=== PATIENT | male | born 1960 | race American Indian/Alaskan Native ===

== ENCOUNTER 2022-07-20 16:48 | Inpatient (IN) | payer OTHER ==
--- NOTE | 2022-07-20 17:02 | Emergency Department Report ---
ED Neuro Deficit HPI - General Stated Complaint: CODE STROKE Time Seen by Provider: 07/20/22 16:53 Source: patient Mode of arrival: Ambulatory Limitations: No Limitations - History of Present Illness Initial Comments: 62-year-old male presented to [facility] with [place] at approximately 3:27 PM via private vehicle and was noted to be lethargic called her altered and unable to ambulate. At time of evaluation patient was confused about his location, unable to provide the year, or recognize he was at a health facility. Patient's blood glucose was initially 421. Patient presents here with EMS with continued confusion and disorientation. He states the year is 2020. He is frustrated that people keep asking him the same questions. Code stroke initiated for stat CT scan to rule out hemorrhagic CVA with stat consultation with neurologist requested Medical record from [facility] reviewed. Past medical history includes Atrial fibrillation, CHF, end-stage renal disease on dialysis, history of COVID-19, hypertension, pancreatitis, sleep apnea, vitamin D deficiency, opiate therapy for chronic pain, nonischemic cardiomyopathy, hyperlipidemia, type 2 diabetes History of cholecystectomy, total knee replacement, appendectomy, and bisected Yesterday patient had his annual diabetic ophthalmology exam) reported reports decreased vision in the left eye over the past 3 to 4 months) with the following diagnosis Diabetes type 2 with mild bilateral nonproliferative retinopathy Left central retinal vein occlusion with macular edema with follow-up with retina specialist next week recommended Bilateral pseudophakia Medications include but not limited to methadone, hydrocodone, Eliquis Patient has 2 to 3 days worth of medications listed as provided by [facility] Allergies noted as per [facility] paperwork - Related Data Allergies/Adverse Reactions: Allergies Allergy/AdvReac Type Severity Reaction Status Date / Time NSAIDS (Non-Steroidal Allergy Unknown Verified 07/20/22 17:24 Anti-Inflamma Penicillins Allergy Unknown Verified 07/20/22 17:24 ED Review of Systems ROS: Stated complaint: CODE STROKE Other details as noted in HPI ED Past Medical Hx - Past Medical History Hx Hypertension: Yes Hx Congestive Heart Failure: Yes Hx Diabetes: Yes Hx Renal Disease: Yes Additional medical history: Central retinal vein occlusion, diabetic retinopathy,Atrial fibrillation, CHF, end-stage renal disease on dialysis, history of COVID-19, hypertension, pancreatitis, sleep apnea, vitamin D def iciency, opiate therapy for chronic pain, nonischemic cardiomyopathy, hyperlipidemia - Surgical History Hx Cholecystectomy: Yes Hx Appendectomy: Yes ED Neuro Physical Exam - General Suspected Stroke: Yes - NIHSS Assessment Interval: Baseline 1a. Level of Consciousness: alert/keenly responsive 1b. LOC Questions: answers 1 question correctly 1c. LOC Commands: performs tasks correctly 2. Best Gaze: normal 3. Visual: complete hemianopia (blurred vision left eye) 4. Facial Palsy: normal symmetrical movement 5b. Motor Arm Right: some gravity effort 5a. Motor Arm Left: some gravity effort 6a. Motor Leg Left: some gravity effort 6b. Motor Leg Right: some gravity effort 7. Limb Ataxia: present 1 limb (left arm) 8. Sensory: normal 9. Best Language: no aphasia 10. Dysarthria: normal 11. Extinction/Inattention: no abnormality Total Score: 12 Stroke Severity: Moderate Stroke - Other Other exam information: General: No acute distress Head: Atraumatic Eyes: normal appearance ENT: Moist mucous membranes Neck: Normal appearance, no midline tenderness Chest: Clear to auscultation bilaterally CV: Regular rate and rhythm Abdomen: Soft, normal bowel sounds, nontender, nondistended, no rebound or guarding Back: Normal inspection Extremity: Normal inspection, full range of motion Neuro: Alert and oriented to self only. NIH stroke scale attempted multiple times with inconsistent results due to lack of patient cooperation Psych: Appropriate behavior Skin: No rash ED Course Vital Signs 07/20/22 07/20/22 07/20/22 17:20 17:30 17:46 Temperature Pulse Rate 79 84 Respiratory 15 23 20 Rate Blood Pressure 153/70 153/70 Blood Pressure [Right] O2 Sat by Pulse 97 98 94 Oximetry 07/20/22 07/20/22 07/20/22 18:00 18:14 18:16 Temperature 98.0 F Pulse Rate 78 82 75 Respiratory 17 16 14 Rate Blood Pressure 172/75 153/70 Blood Pressure 175/75 [Right] O2 Sat by Pulse 97 99 94 Oximetry 07/20/22 07/20/22 07/20/22 18:30 18:38 18:46 Temperature Pulse Rate 74 79 73 Respiratory 15 18 17 Rate Blood Pressure 145/45 145/45 Blood Pressure 145/45 [Right] O2 Sat by Pulse 94 100 98 Oximetry 07/20/22 07/20/22 07/20/22 19:00 19:16 19:30 Temperature Pulse Rate 70 70 71 Respiratory 17 8 L 15 Rate Blood Pressure 149/58 149/58 169/84 Blood Pressure [Right] O2 Sat by Pulse 95 96 97 Oximetry 07/20/22 07/20/22 07/20/22 19:46 20:00 20:22 Temperature Pulse Rate 73 75 66 Respiratory 10 L 17 15 Rate Blood Pressure 169/84 169/84 163/82 Blood Pressure [Right] O2 Sat by Pulse 99 98 98 Oximetry 07/20/22 07/20/22 07/20/22 20:30 20:46 20:47 Temperature 98.0 F Pulse Rate 66 Respiratory 15 19 Rate Blood Pressure 163/82 Blood Pressure [Right] O2 Sat by Pulse 95 95 Oximetry 07/20/22 22:28 Temperature 98.0 F Pulse Rate 73 Respiratory 20 Rate Blood Pressure Blood Pressure 144/88 [Right] O2 Sat by Pulse 95 Oximetry - Reevaluation(s) Reevaluation #1: 07/20/22 19:17 still awaiting lab results. I reordered the lab work noticing that the test was not reported. They were canceled. I spoke to office technology professor and requested a stat blood draw and reordered it once again - Consultations Consultation #1: 07/20/22 22:16 case d/w Jose Rachel. approves admission here - Lab Data Result diagrams: 07/20/22 17:56 07/20/22 19:00 Lab Results 07/20/22 07/20/22 07/20/22 Range/Units 17:35 17:56 17:56 WBC 5.2 (4.5-11.0) K/mm3 RBC 3.42 L (3.65-5.03) M/mm3 Hgb 10.6 L (11.8-15.2) gm/dl Hct 31.6 L (35.5-45.6) % MCV 93 (84-94) fl MCH 31 (28-32) pg MCHC 34 (32-34) % RDW 15.7 H (13.2-15.2) % Plt Count 210 (140-440) K/mm3 Lymph % (Auto) 38.4 H (13.4-35.0) % [place] % (Auto) 7.1 (0.0-7.3) % Eos % (Auto) 1.8 (0.0-4.3) % Baso % (Auto) 0.6 (0.0-1.8) % Lymph # (Auto) 2.0 (1.2-5.4) K/mm3 [place] # (Auto) 0.4 (0.0-0.8) K/mm3 Eos # (Auto) 0.1 (0.0-0.4) K/mm3 Baso # (Auto) 0.0 (0.0-0.1) K/mm3 Seg Neutrophils % 52.1 (40.0-70.0) % Seg Neutrophils # 2.7 (1.8-7.7) K/mm3 PT 14.0 (12.2-14.9) Sec. INR 0.97 (0.87-1.13) APTT 33.6 (24.2-36.6) Sec. Thrombin Time 17.1 (15.1-19.6) Sec. VBG pH (7.320-7.420) Sodium Potassium (3.6-5.0) mmol/L Chloride (98-107) mmol/L Carbon Dioxide (22-30) mmol/L Anion Gap mmol/L BUN Creatinine Estimated GFR BUN/Creatinine Ratio Glucose (75-100) mg/dL POC Glucose 310 H (70-105) mg/dL Calcium Phosphorus (2.5-4.5) mg/dL Magnesium Total Bilirubin AST ALT (7-56) units/L Alkaline Phosphatase (35-129) units/L Ammonia (25-60) umol/L Total Creatine Kinase (55-170) units/L CK-MB (CK-2) CK-MB (CK-2) Rel Index Troponin T Total Protein (6.3-8.2) g/dL Albumin (3.9-5) g/dL Albumin/Globulin Ratio % Triglycerides (2-149) mg/dL Cholesterol (50-199) mg/dL LDL Cholesterol Direct HDL Cholesterol (40-59) mg/dL Cholesterol/HDL Ratio % TSH (0.270-4.200) mlU/mL Free T4 (0.76-1.46) ng/dL Plasma/Serum Alcohol (0-0.07) % 07/20/22 07/20/22 07/20/22 Range/Units 17:56 17:56 17:56 WBC (4.5-11.0) K/mm3 RBC (3.65-5.03) M/mm3 Hgb (11.8-15.2) gm/dl Hct (35.5-45.6) % MCV (84-94) fl MCH (28-32) pg MCHC (32-34) % RDW (13.2-15.2) % Plt Count (140-440) K/mm3 Lymph % (Auto) (13.4-35.0) % [place] % (Auto) (0.0-7.3) % Eos % (Auto) (0.0-4.3) % Baso % (Auto) (0.0-1.8) % Lymph # (Auto) (1.2-5.4) K/mm3 [place] # (Auto) (0.0-0.8) K/mm3 Eos # (Auto) (0.0-0.4) K/mm3 Baso # (Auto) (0.0-0.1) K/mm3 Seg Neutrophils % (40.0-70.0) % Seg Neutrophils # (1.8-7.7) K/mm3 PT (12.2-14.9) Sec. INR (0.87-1.13) APTT (24.2-36.6) Sec. Thrombin Time (15.1-19.6) Sec. VBG pH (7.320-7.420) Sodium TNR Potassium 3.9 (3.6-5.0) mmol/L Chloride 94.1 L (98-107) mmol/L Carbon Dioxide 28 (22-30) mmol/L Anion Gap 18 mmol/L BUN TNR Creatinine TNR Estimated GFR TNR BUN/Creatinine Ratio TNR Glucose 303 H (75-100) mg/dL POC Glucose (70-105) mg/dL Calcium TNR Phosphorus 2.50 (2.5-4.5) mg/dL Magnesium TNR Total Bilirubin TNR AST TNR ALT 13 (7-56) units/L Alkaline Phosphatase 112 (35-129) units/L Ammonia 27.0 (25-60) umol/L Total Creatine Kinase 144 (55-170) units/L CK-MB (CK-2) TNR CK-MB (CK-2) Rel Index TNR Troponin T TNR Total Protein 7.4 (6.3-8.2) g/dL Albumin 4.1 (3.9-5) g/dL Albumin/Globulin Ratio 1.2 % Triglycerides (2-149) mg/dL Cholesterol (50-199) mg/dL LDL Cholesterol Direct HDL Cholesterol (40-59) mg/dL Cholesterol/HDL Ratio % TSH 2.250 (0.270-4.200) mlU/mL Free T4 0.96 (0.76-1.46) ng/dL Plasma/Serum Alcohol (0-0.07) % 07/20/22 07/20/22 07/20/22 Range/Units 17:56 17:56 19:00 WBC (4.5-11.0) K/mm3 RBC (3.65-5.03) M/mm3 Hgb (11.8-15.2) gm/dl Hct (35.5-45.6) % MCV (84-94) fl MCH (28-32) pg MCHC (32-34) % RDW (13.2-15.2) % Plt Count (140-440) K/mm3 Lymph % (Auto) (13.4-35.0) % [place] % (Auto) (0.0-7.3) % Eos % (Auto) (0.0-4.3) % Baso % (Auto) (0.0-1.8) % Lymph # (Auto) (1.2-5.4) K/mm3 [place] # (Auto) (0.0-0.8) K/mm3 Eos # (Auto) (0.0-0.4) K/mm3 Baso # (Auto) (0.0-0.1) K/mm3 Seg Neutrophils % (40.0-70.0) % Seg Neutrophils # (1.8-7.7) K/mm3 PT (12.2-14.9) Sec. INR (0.87-1.13) APTT (24.2-36.6) Sec. Thrombin Time (15.1-19.6) Sec. VBG pH 7.605 H* (7.320-7.420) Sodium 136 L Potassium 4.0 (3.6-5.0) mmol/L Chloride 93.7 L (98-107) mmol/L Carbon Dioxide 28 (22-30) mmol/L Anion Gap 18 mmol/L BUN 28 H Creatinine 5.3 H Estimated GFR 11 BUN/Creatinine Ratio 5 Glucose 247 H (75-100) mg/dL POC Glucose (70-105) mg/dL Calcium 8.7 Phosphorus 3.30 D (2.5-4.5) mg/dL Magnesium 2.20 Total Bilirubin 0.20 AST 8 ALT 9 (7-56) units/L Alkaline Phosphatase 115 (35-129) units/L Ammonia (25-60) umol/L Total Creatine Kinase 146 (55-170) units/L CK-MB (CK-2) 2.2 CK-MB (CK-2) Rel Index 1.5 Troponin T 0.123 H* Total Protein 7.2 (6.3-8.2) g/dL Albumin 4.0 (3.9-5) g/dL Albumin/Globulin Ratio 1.3 % Triglycerides 882 H (2-149) mg/dL Cholesterol 194 (50-199) mg/dL LDL Cholesterol Direct TNR HDL Cholesterol 36 L (40-59) mg/dL Cholesterol/HDL Ratio 5.38 % TSH (0.270-4.200) mlU/mL Free T4 (0.76-1.46) ng/dL Plasma/Serum Alcohol < 0.01 (0-0.07) % - EKG Data -: EKG Interpreted by Me (Left bundle branch block) EKG shows normal: sinus rhythm, ST-T waves (No STEMI) Rate: normal When compared to previous EKG there are: previous EKG unavailable - Radiology Data Radiology results: report reviewed (CT head, CT angiogram head and neck reviewed as well as chest) - Medical Decision Making 62-year-old male presents to the hospital with confusion starting after dialys is. Exact time of onset unclear. Neurologic exam is inconsistent and unclear for focal neurologic deficit. Neurology consult appreciated. No signs of large vessel occlusion or acute noncontrast head CT findings. No significant findings identified on labs to review because of acute encephalopathy. Initial hyperglycemia is improving without intervention without signs of DKA. Patient also has a normal ammonia and thyroid studies. Patient takes significant narcotics including methadone and hydrocodone for pain. Patient is also chronically on Eliquis. Case discussed with [facility] physician who provided permission to admit here. Case discussed with hospitalist Dr. Hester/hospitalist for admission - Thrombolytic Inclusion/Exclusion Thrombolytic Exclusion Criteria: Onset of Symptoms Unknown Thrombolytic Contraindications: Patient on Anticoagulants Critical Care Time: Yes Critical care time in (mins) excluding proc time.: 35 Critical care attestation.: If time is entered above; I have spent that time in minutes in the direct care of this critically ill patient, excluding procedure time. Critical Care Time: 35 minutes of critical care time excluding procedures were used in the care of the patient. I came immediately to the bedside upon patient's arrival. I obtained history from EMS at the bedside. I discussed treatment plan with the nursing team members. I reviewed electronic record Patient required multiple interventions and reassessments. Spoke with hospitalist and consultants for collaborative care ED Disposition Clinical Impression: Altered mental status, ESRD (end stage renal disease) on dialysis, Chronic pain, Chronic narcotic dependence Disposition: ADMITTED INPATIENT Is pt being admited?: Yes Condition: Stable Time of Disposition: 23:21 (DR mcmahon)
--- NOTE | 2022-07-20 17:30 | Cat Scan Report ---
CT head/brain wo con INDICATION / CLINICAL INFORMATION: 62 years Male; Stroke symptoms. TECHNIQUE: Routine CT head without contrast. All CT scans at this location are performed using CT dos e reduction for ALARA by means of automated exposure control. COMPARISON: None. FINDINGS: BRAIN / INTRACRANIAL CONTENTS: There is extensive cerebral white matter disease most consistent with microvascular angiopathy. 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 Is mild cerebral atrophy. The ventricular system is correspondingly appropriate in size and configuration. There is no clear CT porfirio dence of acute intracranial hemorrhage or significant mass effect. Correlation be needed regarding co ncern for underlying acute ischemia given the extent of the above findings. ORBITS: No significant abnormality of visualized orbits. SINUSES / MASTOIDS: No significant abnormality in the visualized paranasal sinuses or mastoid air maxwell ls. CRANIOCERVICAL JUNCTION: No significant abnormality. ADDITIONAL FINDINGS: None. IMPRESSION: 1. There is extensive microvascular angiopathy as detailed above without clear CT evidence of acute i ntracranial hemorrhage. Signer Name: Rusty Adhikari MD Signed: 07/20/2022 5:25 PM Workstation Name: [email or web address]
--- NOTE | 2022-07-20 17:35 | Emergency Department Report ---
Blank Doc - Documentation Documentation: [facility] Consult Note # Demographics Consult Type: Acute Stroke Level 1 (0-4.5 hrs) Patient Location: Emergency Room First Name: Binu Last Name: Chris Date of : 1960 Age: 62 Gender: Male Facility: [facility] Time of Initial Page (Eastern Time): 07/20/2022, 16:55 Time of Return Call (Eastern Time): 07/20/2022, 16:55 # HPI History: 62 year old male with hx of DM, diabetic retinopathy, ESRD on dialysis who presents with AMS after completing dialysis to an outside [place] clinic. Unclear time of onset of the symptoms. Blood glucose is 421. Patient on eliquis on review of med list. Patient unable to provide much history and states he doesnt know why he is in the hospital. # Scores Level of Consciousness 1a: [0] = Alert; keenly responsive LOC Questions 1b: [0] = Answers both questions correctly LOC Commands 1c: [0] = Performs both tasks correctly Best Gaze 2: [0] = Normal Visual 3: [0] = No visual loss Facial Palsy 4: [0] = Normal symmetrical movements Motor Arm Left 5a: [0] = No drift Motor Leg Left 6a: [0] = No drift Motor Leg Right 6b: [0] = No drift Limb Ataxia 7: [0] = Absent Sensory 8: [0] = Normal Best Language 9: [0] = No aphasia Dysarthria 10: [0] = Normal Extinction and Inattention 11: [0] = No abnormality NIHSS Total: 0 # Exam Mental Status: awake oriented to place, not cooperative with exam, states his head hurts and wants to be left alone Language: no dysarthria unable to assess for aphasia Motor: no obvious drift in arms, would not move his legs for me, states he can move them but doesnt want to right now # PMH-FH-SH Past Medical History: Diabetes hypertension ESRD on dialysis Social History: non-smoker non-drinker no drugs lives with family # Data Head CT: no bleed per radiologist read # Assessment Impression: Likely acute metabolic /toxic encephalopathy., work up as per ED. Less likely to be stroke. No focal findings noted on exam though patient not cooperative. Not tpa candidate # Plan Thrombolytic/Intervention: NOT IV Thrombolysis or IA Intervention candidate Thrombolytic Exclusion: > 4.5 hours non-disabling deficit, unclear timeline, on eliquis Intraarterial Exclusion: cta pending Blood Pressure Management: IV fluid bolus Target Blood Pressure: SBP < 160 SBP > 110 DBP < 105 Labs: CBC comprehensive metabolic panel hemoglobin A1c lipid panel troponin TSH ua Imaging: (urgency: STAT): CT Head without contrast CT Angiogram Head and CT Angiogram Neck Imaging: (urgency: routine): MRI Brain without contrast Diagnostic Test: echo with bubble study Medication: continue home meds Other: If patient has any neurological deterioration please call me back immediately telemetry monitoring would not pursue stroke work-up if MRI is negative I have discussed my recommendations with the referring provider # Demographics First Name: Binu Last Name: Chris Facility: [facility]
[2022-07-20 18:07] LABS: Basophils % (Auto) 0.6 % (0.0-1.8); Eosinophils # (Auto) 0.1 K/mm3 (0.0-0.4); Eosinophils % (Auto) 1.8 % (0.0-4.3); Hematocrit 31.6 % (35.5-45.6); Hemoglobin 10.6 gm/dl (11.8-15.2); Lymphocytes % (Auto) 38.4 % (13.4-35.0); Mean Corpuscular HGB Conc 34 % (32-34); Mean Corpuscular Volume 93 fl (84-94); Monocytes # (Auto) 0.4 K/mm3 (0.0-0.8); Monocytes % (Auto) 7.1 % (0.0-7.3); Platelet Count 210 K/mm3 (140-440); Red Blood Count 3.42 M/mm3 (3.65-5.03); Red Cell Distribution Width 15.7 % (13.2-15.2)
--- NOTE | 2022-07-20 18:16 | XRay Report ---
CHEST 1 VIEW 07/20/2022 5:03 PM INDICATION / CLINICAL INFORMATION: altered mental status. COMPARISON: None. FINDINGS: SUPPORT DEVICES: None. HEART / MEDIASTINUM: Normal. LUNGS / PLEURA: There are low lung volumes with presumed atelectatic changes in the bases. No pleural effusion. No pneumothorax. ADDITIONAL FINDINGS: No significant additional findings. IMPRESSION: 1. No acute findings. Signer Name: Jh Miramontes MD Signed: 07/20/2022 6:12 PM Workstation Name: [email or web address]
[2022-07-20 18:19] LABS: INR 0.97 (0.87-1.13)
[2022-07-20 18:20] LABS: Partial Thromboplastin Time 33.6 Sec. (24.2-36.6); Thrombin Time 17.1 Sec. (15.1-19.6)
[2022-07-20 18:23] LABS: Alanine Aminotransferase 13 units/L (7-56); Albumin 4.1 g/dL (3.9-5)
[2022-07-20 18:34] LABS: Free T4 (Free Thyroxine) 0.96 ng/dL (0.76-1.46)
[2022-07-20 18:52] LABS: BUN/Creatinine Ratio TNR; Blood Urea Nitrogen TNR mg/dL (9-20)
[2022-07-20 18:53] LABS: Calcium TNR mg/dL (8.4-10.2); Creatine Kinase MB TNR ng/mL (0.0-4.0); Hemolysis Index TNR
[2022-07-20] MEDS ORDERED: HYDROmorphone 0.5 MG/0.5 ML INJ IV ONE (19:20)
[2022-07-20 20:05] LABS: Creatine Kinase MB 2.2 ng/mL (0.0-4.0)
[2022-07-20 20:07] LABS: Blood Urea Nitrogen 28 mg/dL (9-20); Calcium 8.7 mg/dL (8.4-10.2); Hemolysis Index 29
[2022-07-20 20:21] LABS: BUN/Creatinine Ratio 5
[2022-07-20 20:40] LABS: Alanine Aminotransferase 9 units/L (7-56)
[2022-07-20 20:53] LABS: Chol/HDL Ratio 5.38 %; HDL Cholesterol 36 mg/dL (40-59); LDL Cholesterol,Direct TNR mg/dL (50-130)
--- NOTE | 2022-07-20 21:26 | Cat Scan Report ---
CT angio head, CT angio neck HISTORY: confusion, possible left side weakness COMPARISON: None. TECHNIQUE: CTA of the neck and head is performed after IV contrast. 3-D/MIP reformats were postproces sed. Percentage stenosis is determined by direct quantitative measurements of diseased internal becerril tid artery diameter compared with normal distal internal carotid artery reference segments or by crit eria similar to NASCET where applicable. All CT scans at this location are performed using CT dose re duction for ALARA by means of automated exposure control. FINDINGS: CTA NECK: Aortic arch: No significant abnormality. Cervical vertebral arteries: No occlusion or hemodynamically significant stenosis. Common Carotid arteries: No occlusion or hemodynamically significant stenosis. Internal carotid arteries: No occlusion or hemodynamically significant stenosis. CTA HEAD: Intracranial internal carotid arteries: No occlusion or significant stenosis. Anterior cerebral arteries: No occlusion or significant stenosis. Middle cerebral arteries: No occlusion or significant stenosis. Intracranial vertebral arteries: No occlusion or significant stenosis. Basilar artery: No occlusion or significant stenosis. Posterior cerebral arteries: No occlusion or significant stenosis. No aneurysm. Additional findings: None. IMPRESSION: 1. CTA NECK: No occlusion or significant stenosis of the carotid or vertebral arteries. 2. CTA HEAD: No occlusion or significant stenosis of the major intracranial vasculature. Signer Name: Jesus Salvador MD Signed: 07/20/2022 9:21 PM Workstation Name: [id number]
[2022-07-20] MEDS ORDERED: HYDROmorphone 0.5 MG/0.5 ML INJ ONE (22:38)
[2022-07-20] MEDS ORDERED: HYDROmorphone 1 MG/1 ML INJ IV ONE (23:01)
[2022-07-20] MEDS ORDERED: ONDANSETRON 4 MG/2 ML INJ IV PRN ×3 (23:22→23:58)
[2022-07-20] MEDS ORDERED: ACETAMINOPHEN 325 MG TAB PO PRN (23:58)
[2022-07-20] MEDS ORDERED: DEXTROSE 50% IN WATER (25GM) 50 ML SYRINGE IV PRN (23:58)
[2022-07-20] MEDS ORDERED: MAGNESIUM HYDROXIDE (MOM) ORAL LIQD UDC PO PRN ×2 (23:58)
[2022-07-20] MEDS ORDERED: PROMETHAZINE 25 MG RECT SUPP PR PRN (23:58)
[2022-07-20] MEDS ORDERED: METOCLOPRAMIDE 10 MG TAB PO PRN (23:58)
--- NOTE | 2022-07-21 00:13 | History and Physical Report ---
History of Present Illness Date of examination: 07/21/22 Date of admission: 07/21/2022 Chief complaint: Altered mental status History of present illness: 62-year-old male with multiple medical problems including CHF, end-stage renal disease on dialysis, atrial fibrillation, hypertension, opiate therapy for chronic pain and diabetes mellitus brought into the emergency room today from a [facility] care facility with complaints of changes in mental status and gen eralized lethargy. Patient is able to respond to questions appropriately but still appears confused. He states he does not know why he is in the hospital Consultation was placed to the neurologist who recommended further work-up for possible metabolic/toxic encephalopathy. Work-up in the emergency room today, labs significant for BUN of 28 and creatinine of 5.3. Troponin of 0.123. CT of the head shows extensive microvascular angiopathy. No evidence of acute intracranial hemorrhage. Chest x-ray unremarkable. CTA head and neck unremarkable. Past History Past Medical History: atrial fib, diabetes, dialysis, ESRD, hypertension, hyperlipidemia, other (Sleep apnea,H/O Pancreatitis,Vit. D deficiency,non ischemic cardiomyopathy) Past Surgical History: appendectomy, cholecystectomy, total knee replacement Social history: no significant social history Family history: no significant family history Medications and Allergies Allergies Allergy/AdvReac Type Severity Reaction Status Date / Time NSAIDS (Non-Steroidal Allergy Unknown Verified 07/20/22 17:24 Anti-Inflamma Penicillins Allergy Unknown Verified 07/20/22 17:24 Active Meds: Active Medications Acetaminophen (Acetaminophen 325 Mg Tab) 650 mg PO Q4H PRN PRN Reason: Pain MILD(1-3)/Fever >100.5/DANIELLE Morphine Sulfate (Morphine 2 Mg/1 Ml Inj) 2 mg IV Q4H PRN PRN Reason: Pain, Moderate (4-6) Ondansetron HCl (Ondansetron 4 Mg/2 Ml Inj) 4 mg IV Q8H PRN PRN Reason: Nausea And Vomiting Sodium Chloride (Sodium Chloride 0.9% 10 Ml Flush Syringe) 10 ml IV BID BILL Sodium Chloride (Sodium Chloride 0.9% 10 Ml Flush Syringe) 10 ml IV PRN PRN PRN Reason: LINE FLUSH Review of Systems Constitutional: no fever, no chills Ears, nose, mouth and throat: no nasal congestion, no sore throat Cardiovascular: no chest pain, no palpitations Respiratory: no cough, no shortness of breath Gastrointestinal: no nausea, no vomiting, no diarrhea Genitourinary Male: no dysuria, no hematuria, no flank pain Musculoskeletal: no neck pain, no low back pain Integumentary: no rash, no pruritis Neurological: confusion, no headaches Psychiatric: no anxiety, no depression Endocrine: no polyphagia, no polydipsia, no polyuria, no nocturia Exam - Constitutional Vitals: Temp Pulse Resp BP Pulse Ox 98.7 F 61 18 177/73 99 07/20/22 23:26 07/20/22 23:16 07/20/22 23:16 07/20/22 23:16 07/20/22 23:16 General appearance: Present: no acute distress, well-nourished, obese - EENT Eyes: Present: PERRL, EOM intact. Absent: scleral icterus ENT: hearing intact, clear oral mucosa, dentition normal - Neck Neck: Present: supple, normal ROM - Respiratory Respiratory effort: normal Respiratory: bilateral: CTA - Cardiovascular Rhythm: regular Heart Sounds: Present: S1 & S2. Absent: gallop, systolic murmur, diastolic murmur, rub, click - Extremities Extremities: no ischemia, pulses intact, pulses symmetrical, No edema, normal temperature, normal color, Full ROM Peripheral Pulses: within normal limits - Abdominal General gastrointestinal: Present: soft, non-tender, non-distended, normal bowel sounds. Absent: mass - Integumentary Integumentary: Present: clear, warm, dry, normal turgor. Absent: rash - Musculoskeletal Musculoskeletal: strength equal bilaterally - Psychiatric Psychiatric: appropriate mood/affect, intact judgment & insight, memory intact, cooperative - Neurologic Neurologic: CNII-XII intact, no focal deficits, moves all extremities HEART Score - HEART Score Troponin: Troponin T 0.123 ng/mL (0.00-0.029) H* 07/20/22 19:00 Results - Labs CBC & Chem 7: 07/20/22 17:56 07/20/22 19:00 Labs: Abnormal lab results 07/20/22 07/20/22 07/20/22 Range/Units 17:35 17:56 17:56 RBC 3.42 L (3.65-5.03) M/mm3 Hgb 10.6 L (11.8-15.2) gm/dl Hct 31.6 L (35.5-45.6) % RDW 15.7 H (13.2-15.2) % Lymph % (Auto) 38.4 H (13.4-35.0) % VBG pH (7.320-7.420) Sodium (137-145) mmol/L Chloride 94.1 L (98-107) mmol/L BUN (9-20) mg/dL Creatinine (0.8-1.3) mg/dL Glucose 303 H (75-100) mg/dL POC Glucose 310 H (70-105) mg/dL Troponin T (0.00-0.029) ng/mL Triglycerides (2-149) mg/dL HDL Cholesterol (40-59) mg/dL 07/20/22 07/20/22 Range/Units 17:56 19:00 RBC (3.65-5.03) M/mm3 Hgb (11.8-15.2) gm/dl Hct (35.5-45.6) % RDW (13.2-15.2) % Lymph % (Auto) (13.4-35.0) % VBG pH 7.605 H* (7.320-7.420) Sodium 136 L (137-145) mmol/L Chloride 93.7 L (98-107) mmol/L BUN 28 H (9-20) mg/dL Creatinine 5.3 H (0.8-1.3) mg/dL Glucose 247 H (75-100) mg/dL POC Glucose (70-105) mg/dL Troponin T 0.123 H* (0.00-0.029) ng/mL Triglycerides 882 H (2-149) mg/dL HDL Cholesterol 36 L (40-59) mg/dL Assessment and Plan Assessment: 1.Altered mental status 2.ESRD- on dialysis 3.Diabetes Mellitus 4. Elevated troponin-possibly secondary to end-stage renal disease Plan: 1. Patient admitted and will monitor neuro status. 2. Schedule for MRI of the brain and also cardiogram. 3. Consult placed to neurology for further evaluation and recommendations. 4. Commence patient on daily aspirin and statin. 5. We will place consult to nephrology for further evaluation and recommendations. 6. Patient placed on sliding scale insulin. We will monitor Accu-Chek. DVT Prophylaxis: SQ Heparin CODE STATUS: Full code
[2022-07-21] MEDS: MORPHINE 2 MG/1 ML INJ IV PRN ×4 (02:06→22:03)
[2022-07-21] MEDS: ACETAMINOPHEN 325 MG TAB PO PRN ×2 (02:50→10:15)
[2022-07-21] MEDS: HEPARIN 5,000 UNIT/1 ML VIAL SUB-Q SCH ×3 (05:22→22:02)
[2022-07-21] MEDS ORDERED: ASPIRIN 325 MG TAB PO SCH (10:00)
[2022-07-21] MEDS: INSULIN LISPRO 100 UNIT/ML SUB-Q SCH ×4 (10:16→22:11)
--- NOTE | 2022-07-21 12:25 | Vascular Lab Report ---
DUPLEX DOPPLER ULTRASOUND CAROTID, BILATERAL INDICATION / CLINICAL INFORMATION: stroke. COMPARISON: CTA neck 07/20/2022. FINDINGS: RIGHT CAROTID: Mild atherosclerotic plaque. - PLAQUE ESTIMATE (%): < 50% - CCA velocity: 63 cm/sec. - ICA peak systolic velocity: 102 cm/sec. - ICA/CCA PSV Ratio: Less than 2. Right Vertebral Artery: Antegrade flow. LEFT CAROTID: Mild atherosclerotic plaque. - PLAQUE ESTIMATE (%): < 50% - CCA velocity: 83 cm/sec. - ICA peak systolic velocity: 107 cm/sec. - ICA/CCA PSV Ratio: Less than 2. Left Vertebral Artery: Antegrade flow. IMPRESSION: 1. Right Internal Carotid Artery: Less than 50% diameter stenosis. 2. Left Internal Carotid Artery: Less than 50% diameter stenosis. Velocity criteria are extrapolated from diameter data as defined by the Society of Radiologists in Ul trasound Consensus Conference, Radiology 2003; 229;340-346. NO STENOSIS (NORMAL) - Plaque = none; ICA PSV < 125 cm/sec; ICA/CCA PSV Ratio < 2.0 <50% STENOSIS - Plaque < 50%; ICA PSV < 125 cm/sec; ICA/CCA PSV Ratio < 2.0 50-69% STENOSIS - Plaque > 50%; ICA PSV = 125-230 cm/sec; ICA/CCA PSV Ratio = 2.0-4.0 >70% BUT <100% STENOSIS - Plaque > 50%; ICA PSV > 230 cm/sec; ICA/CCA PSV Ratio > 4.0 NEAR OCCLUSION - Plaque = visible lumen; ICA PSV = high/low/none; ICA/CCA PSV Ratio = variable TOTAL OCCLUSION - Plaque = no lumen; ICA PSV = none; ICA/CCA PSV Ratio = N/A Scribed by: Lou Moya RDMS, RVT, RMSKS Scribed: 07/21/2022 10:55 AM I have reviewed the images, agree with this report, and edited this report as needed. Signer Name: Justin Andres MD Signed: 07/21/2022 12:21 PM Workstation Name: [id number]
[2022-07-21] MEDS ORDERED: LACTULOSE 20 GM/30 ML ORAL LIQD PO PRN (13:00)
--- NOTE | 2022-07-21 13:37 | Electrocardiograph Report ---
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
--- NOTE | 2022-07-21 13:44 | Event Note ---
Date: 07/21/22 Patient seen and examined at bedside. He appears to be alert and oriented x2. He has no recollection of the events that caused him to be hospitalized. He does have ESRD and was dialyzed yesterday. I also discussed current care plan with his Lily Perez ([phone]) over the phone. She has noticed that he has been having a decline in his memory which is worse after dialysis. She spoke with him earlier today and it is not his baseline to be confused. We will continue with current care plan. The patient is still awaiting Neurology and PT evaluation. [facility] was contacted to discuss patients hospitalization.
--- NOTE | 2022-07-21 13:56 | Consultation ---
History of Present Illness Consult date: 07/21/22 Reason for Consult: CVA History of present illness: 62-year-old male with multiple medical problems including CHF, end-stage renal disease on dialysis, atrial fibrillation, hypertension, opiate therapy for chronic pain and diabetes mellitus brought into the emergency room today from a [facility] care facility with complaints of changes in mental status and generalized lethargy. Patient is able to respond to questions appropriately but still appears confused. He states he does not know why he is in the hospital Consultation was placed to the neurologist who recommended further work-up for possible metabolic/toxic encephalopathy. History reviewed with the patient , the patient reports the pain the left arm and back pain, no tongue bite . There patient recall no history . There is a hsitory of DANIELLE . Past History Past Medical History: atrial fib, diabetes, dialysis, ESRD, hypertension, hype rlipidemia, other (Sleep apnea,H/O Pancreatitis,Vit. D deficiency,non ischemic cardiomyopathy) Past Surgical History: appendectomy, cholecystectomy, total knee replacement Social history: no significant social history Family history: no significant family history Medications and Allergies Allergies Allergy/AdvReac Type Severity Reaction Status Date / Time NSAIDS (Non-Steroidal Allergy Unknown Verified 07/20/22 17:24 Anti-Inflamma Penicillins Allergy Unknown Verified 07/20/22 17:24 Active Meds: Active Medications Acetaminophen (Acetaminophen 325 Mg Tab) 650 mg PO Q4H PRN PRN Reason: Pain MILD(1-3)/Fever >100.5/DANIELLE Last Admin: 07/21/22 10:15 Dose: 650 mg Aspirin (Aspirin 325 Mg Tab) 325 mg PO QDAY BILL Last Admin: 07/21/22 10:15 Dose: 325 mg Atorvastatin Calcium (Atorvastatin 40 Mg Tab) 40 mg PO QHS BILL Bisacodyl (Bisacodyl 10 Mg Rect Supp) 10 mg MD QDAY PRN PRN Reason: Constipation Dextrose (Dextrose 50% In Water (25gm) 50 Ml Syringe) 0 ml IV Q30MIN PRN; Protocol PRN Reason: Hypoglycemia Heparin Sodium (Porcine) (Heparin 5,000 Unit/1 Ml Vial) 5,000 unit SUB-Q Q8HR BILL Last Admin: 07/21/22 05:22 Dose: 5,000 unit Insulin Human Lispro (Insulin Lispro 100 Unit/Ml) 0 unit SUB-Q [facility]; Protocol Last Admin: 07/21/22 11:59 Dose: 1 unit Lactulose (Lactulose 20 Gm/30 Ml Oral Liqd) 20 gm PO Q6H PRN PRN Reason: Constipation Magnesium Hydroxide (Magnesium Hydroxide (Mom) Oral Liqd Udc) 30 ml PO Q4H PRN PRN Reason: Constipation Metoclopramide HCl (Metoclopramide 10 Mg Tab) 5 mg PO Q6H PRN PRN Reason: Nausea And Vomiting Morphine Sulfate (Morphine 2 Mg/1 Ml Inj) 2 mg IV Q4H PRN PRN Reason: Pain, Moderate (4-6) Last Admin: 07/21/22 12:01 Dose: 2 mg Ondansetron HCl (Ondansetron 4 Mg/2 Ml Inj) 4 mg IV Q8H PRN PRN Reason: Nausea And Vomiting Promethazine HCl (Promethazine 25 Mg Rect Supp) 25 mg MD Q6H PRN PRN Reason: Nausea And Vomiting Sodium Chloride (Sodium Chloride 0.9% 10 Ml Flush Syringe) 10 ml IV BID BILL Last Admin: 07/21/22 12:05 Dose: 10 ml Sodium Chloride (Sodium Chloride 0.9% 10 Ml Flush Syringe) 10 ml IV PRN PRN PRN Reason: LINE FLUSH Physical Examination - Vital Signs Vital Signs: Vital Signs Resp Pulse Ox 15 97 07/20/22 17:20 07/20/22 17:20 - Physical Exam Narrative exam: The patient is alert , moves all 4 extremity , there no cranial nerve abnormality noted . Results - Laboratory Findings CBC and BMP: 07/20/22 17:56 07/20/22 19:00 Abnormal Lab Findings: Abnormal Labs 07/20/22 07/20/22 07/20/22 17:35 17:56 17:56 RBC 3.42 L Hgb 10.6 L Hct 31.6 L RDW 15.7 H Lymph % (Auto) 38.4 H VBG pH Sodium Chloride 94.1 L BUN Creatinine Glucose 303 H POC Glucose 310 H Troponin T Triglycerides HDL Cholesterol 07/20/22 07/20/22 07/20/22 17:56 19:00 23:05 RBC Hgb Hct RDW Lymph % (Auto) VBG pH 7.605 H* Sodium 136 L Chloride 93.7 L BUN 28 H Creatinine 5.3 H Glucose 247 H POC Glucose Troponin T 0.123 H* 0.129 H* Triglycerides 882 H HDL Cholesterol 36 L 07/21/22 07:41 RBC Hgb Hct RDW Lymph % (Auto) VBG pH Sodium Chloride BUN Creatinine Glucose POC Glucose 214 H Troponin T Triglycerides HDL Cholesterol Assessment and Plan 1. CVA ( Hypoperfusion ? secondary to Dialysis - CTA Brain and Neck Reviewed ). 2. Recurrant Falls ( rule out Cervical Myelopathy ). MRI Brain and MRI Cervical Spine while in Hospital . PT evaluation for Fall . Out Patient Neurological Follow up for Possible NCV . No changes in Medications . Dr. Durham
[2022-07-21] MEDS ORDERED: hydrALAZINE 20 MG/1 ML INJ IV PRN (21:53)
[2022-07-21] MEDS ORDERED: METHADONE 5 MG TAB PO SCH (22:00)
[2022-07-21] MEDS ORDERED: PANTOPRAZOLE 40 MG TAB PO PRN (22:00)
[2022-07-21] MEDS: APIXABAN 5 MG TAB PO SCH (22:15)
[2022-07-21] MEDS: METHADONE 5 MG TAB PO ONE ×2 (22:16→23:07)
[2022-07-21 22:34] LABS: Hepatitis B Surface Antigen Non-Reactive (Negative); Hepatitis C Virus Antibody Non-Reactive (NonReactive)
[2022-07-21] MEDS ORDERED: allopurinoL 100 MG TAB PO ONE (22:50)
[2022-07-21] MEDS ORDERED: traZODone 100 MG TAB PO ONE (22:50)
[2022-07-21] MEDS ORDERED: tiZANidine TAB 4 MG TAB PO ONE (22:50)
[2022-07-21] MEDS ORDERED: VENLAFAXINE 37.5 MG TAB PO ONE (23:00)
[2022-07-21] MEDS: LACTULOSE 20 GM/30 ML ORAL LIQD PO SCH (23:10)
[2022-07-22] MEDS: carvediloL 25 MG TAB PO SCH ×3 (01:14→18:27)
[2022-07-22] MEDS: MORPHINE 2 MG/1 ML INJ IV PRN ×2 (05:30→09:14)
[2022-07-22 05:54] LABS: Basophils % (Auto) 0.7 % (0.0-1.8); Eosinophils # (Auto) 0.1 K/mm3 (0.0-0.4); Hematocrit 29.7 % (35.5-45.6); Hemoglobin 9.9 gm/dl (11.8-15.2); Lymphocytes # (Auto) 2.1 K/mm3 (1.2-5.4); Lymphocytes % (Auto) 51.3 % (13.4-35.0); Mean Corpuscular HGB Conc 33 % (32-34); Mean Corpuscular Volume 91 fl (84-94); Monocytes # (Auto) 0.3 K/mm3 (0.0-0.8); Monocytes % (Auto) 8.3 % (0.0-7.3); Platelet Count 185 K/mm3 (140-440); Red Blood Count 3.28 M/mm3 (3.65-5.03)
[2022-07-22 05:59] LABS: Calcium 8.7 mg/dL (8.4-10.2)
--- NOTE | 2022-07-22 07:45 | Discharge Summary ---
Providers - Providers Date of Admission: 07/20/22 23:22 Attending physician: JAN BALTAZAR MD 07/20/22 23:58 Consult to Physician [CONS] Routine Comment: Consulting Provider: KEVIN JACINTO Physician Instructions: Reason For Exam: Altered mental status, R/O CVA 07/20/22 23:59 Consult to Dietitian/Nutrition [CONS] Routine Physician Instructions: Reason For Exam: Reason for Consult: Diet education Consult to Dietitian/Nutrition [CONS] Routine Physician Instructions: Reason For Exam: Reason for Consult: Nutrition Recommendations Reason for Consult: Diet education Occupational Therapy Evaluate and Treat [CONS] Routine Comment: Reason For Exam: Neuro deficits Physical Therapy Evaluation and Treat [CONS] Routine Comment: Reason For Exam: Neuro deficits 07/21/22 06:50 Consult to Physician [CONS] Routine Comment: Consulting Provider: RA SHIN Physician Instructions: Reason For Exam: End-stage renal disease on dialysis Hospitalization Condition: Stable Disposition: 30 STILL A PATIENT Core Measure Documentation - Palliative Care Palliative Care/ Comfort Measures: Not Applicable Exam - Constitutional Vitals: Temp Pulse Resp BP Pulse Ox 97.6 F 71 20 153/71 98 07/22/22 03:38 07/22/22 03:38 07/22/22 05:30 07/22/22 03:38 07/22/22 03:38 Plan Care Plan Goals: Please follow-up with your primary care provider. Please have them to refer you to a neurologist for follow-up. We were unable to complete MRI due to your size. We cannot completely rule out whether or not you had a stroke or a TIA. Please take all medications as they are prescribed to you. Please continue to go to your hemodialysis sessions. Please do not drive until you are cleared by your primary care provider. Follow up with: NALLELY HAWTHORNE [Other] - 7 Days
[2022-07-22] MEDS ORDERED: INSULIN NPH/REGULAR 70/30 INJ SUB-Q SCH (08:00)
[2022-07-22] MEDS: INSULIN LISPRO 100 UNIT/ML SUB-Q SCH ×3 (08:29→18:07)
[2022-07-22] MEDS: hydrALAZINE 100 MG TAB PO SCH ×3 (08:43→18:29)
[2022-07-22] MEDS: LACTULOSE 20 GM/30 ML ORAL LIQD PO SCH (09:13)
[2022-07-22] MEDS: APIXABAN 5 MG TAB PO SCH (09:14)
--- NOTE | 2022-07-22 10:16 | Consultation ---
History of Present Illness - History of Present Illness Thank you for the consultation ! Patient was evaluated today, My assessment and plan are as follows #ESRD patient is currently dialysis dependent, will order for hemodialysis treatment today, gentle dialysis as tolerated Currently on maintenance hemodialysis Sunday, dialysis will be ordered #Anemia in end-stage kidney disease: To monitor and follow, hold off erythropoietin for now due to recent concerns about ischemia, #Fluid and electrolyte sodium 132, calcium normal, bicarbonate normal #Bone mineral disorder and secondary hyperparathyroidism: To monitor and follow #Some acceleration of the blood pressure, hemodialysis and post assessment requ ired #Current access is a fistula, patient is currently being followed by [facility] #Mild leukopenia needs to follow-up with his primary stay cutter If you have any question in regards to this patient renal care please feel free to contact me at [phone] Author: Jaime Yao M.D. [facility], [address] [place] [address] Tel; [phone] [employer] Source of information: From patient History of present illness Patient is 62-year-old male who is currently established and followed by [facility] and came to the hospital with lethargy, underwent neurological evaluation is currently dialysis dependent Sunday and Sunday schedule, due for dialysis today, mildly elevated blood pressure blood sugars have been slightly elevated Events of this hospitalization were reviewed Past medical history: End-stage kidney disease currently on dialysis Sunday Anemia in end-stage renal disease History of COVID-19 infection Hypertension Pancreatitis Sleep apnea Vitamin D deficiency Chronic opiate therapy Nonischemic cardiomyopathy Atrial fibrillation And multiple other comorbidities Current allergies: Reviewed from the current chart Social history: Reviewed from the current chart Family history: Reviewed from the current chart Review of system: Positive for brought in here with altered mental status/lethargy All other review of systems negative Physical examination Vitals: Reviewed General: No acute distress HEENT: Oral mucosa moist no pallor or icterus Neck: Supple without any JVD thyromegaly or nodular mass Chest: Clear to auscultation Heart: Regular rate and rhythm S1-S2 heard no S3-S4 Abdomen: Soft nontender, bowel sounds present no renal bruit no suprapubic masses no CVA tenderness noted Extremity: Minimal edema dry skin no peripheral cyanosis Endocrine: Thyroid not enlarged Psychiatric: No agitation and aggression noted Musculoskeletal: No joint effusion noted Labs and x-rays: Reviewed from this admission Past History Past Medical History: atrial fib, diabetes, dialysis, ESRD, hypertension, hyperlipidemia, other (Sleep apnea,H/O Pancreatitis,Vit. D deficiency,non ischemic cardiomyopathy) Past Surgical History: appendectomy, cholecystectomy, total knee replacement Social history: no significant social history Family history: no significant family history Medications and Allergies Allergies Allergy/AdvReac Type Severity Reaction Status Date / Time NSAIDS (Non-Steroidal Allergy Unknown Verified 07/20/22 17:24 Anti-Inflamma Penicillins Allergy Unknown Verified 07/20/22 17:24 Home Medications Medication Instructions Recorded Confirmed Last Taken Type Apixaban [Eliquis] 5 mg PO BID 07/21/22 07/21/22 2 Days Ago History ~07/19/22 Atorvastatin [Lipitor] 1 tab PO DAILY 07/21/22 07/21/22 2 Days Ago History ~07/19/22 Gabapentin 2 cap PO HS 07/21/22 07/21/22 2 Days Ago History ~07/19/22 HYDROcodone/APAP 5-325 [Tenstrike 1 tab PO PRN 07/21/22 07/21/22 2 Days Ago History 5-325 mg TAB] ~07/19/22 Lactulose [Cephulac] 20 gm PO BID 07/21/22 07/21/22 1 Day Ago History ~07/20/22 Methadone [Dolophine] 5 mg PO HS 07/21/22 07/21/22 2 Days Ago History ~07/19/22 NIFEdipine [Nifedipine ER] 1 tab PO DAILY 07/21/22 07/21/22 2 Days Ago History ~07/19/22 NIFEdipine [Nifedipine ER] 90 mg PO DAILY 07/21/22 07/21/22 2 Days Ago History ~07/19/22 Pantoprazole [Protonix TAB] 40 mg PO PRN 07/21/22 07/21/22 Unknown History Potassium Chloride [Klor-Con 10] 10 meq PO DAILY 07/21/22 07/21/22 2 Days Ago History ~07/19/22 Torsemide [Demadex] 100 mg PO TID 07/21/22 07/21/22 2 Days Ago History ~07/19/22 Venlafaxine [Effexor 37.5mg tab] 37.5 mg PO TID 07/21/22 07/21/22 2 Days Ago History ~07/19/22 Vit B Complx C/Folic Acid/Zinc 1 tab PO DAILY 07/21/22 07/21/22 2 Days Ago History [Dialyvite 800-Zinc 50 mg Tab] ~07/19/22 allopurinoL [Zyloprim] 100 mg PO HS 07/21/22 07/21/22 2 Days Ago History ~07/19/22 carvediloL [Coreg] 25 mg PO BID 07/21/22 07/21/22 2 Days Ago History ~07/19/22 hydrALAZINE [Apresoline TAB] 100 mg PO TID 07/21/22 07/21/22 2 Days Ago History ~07/19/22 metOLazone [Metolazone] 1 tab PO TID 07/21/22 07/21/22 2 Days Ago History ~07/19/22 tiZANidine [Zanaflex 4mg TAB] 4 mg PO TID 07/21/22 07/21/22 2 Days Ago History ~07/19/22 traZODone [Desyrel] 100 mg PO QHS 07/21/22 07/21/22 2 Days Ago History ~07/19/22 Active Meds: Active Medications Acetaminophen (Acetaminophen 325 Mg Tab) 650 mg PO Q4H PRN PRN Reason: Pain MILD(1-3)/Fever >100.5/DANIELLE Last Admin: 07/21/22 10:15 Dose: 650 mg Apixaban (Apixaban 5 Mg Tab) 5 mg PO BID [facility] Last Admin: 07/22/22 09:14 Dose: 5 mg Atorvastatin Calcium (Atorvastatin 40 Mg Tab) 40 mg PO QHS [facility] Last Admin: 07/21/22 22:02 Dose: 40 mg Bisacodyl (Bisacodyl 10 Mg Rect Supp) 10 mg RI QDAY PRN PRN Reason: Constipation Carvedilol (Carvedilol 25 Mg Tab) 25 mg PO BID@0800,1700 [facility] Last Admin: 07/22/22 08:43 Dose: 25 mg Dextrose (Dextrose 50% In Water (25gm) 50 Ml Syringe) 0 ml IV Q30MIN PRN; Protocol PRN Reason: Hypoglycemia Hydralazine HCl (Hydralazine 20 Mg/1 Ml Inj) 10 mg IV Q4H PRN PRN Reason: Blood Pressure Last Admin: 07/21/22 22:26 Dose: 10 mg Hydralazine HCl (Hydralazine 100 Mg Tab) 100 mg PO TID [facility] Last Admin: 07/22/22 08:43 Dose: 100 mg Insulin Human Isoph/Insulin Regular (Insulin Nph/Regular 70/30 Inj) 10 unit SUB-Q QDDIAB [facility] Last Admin: 07/22/22 09:13 Dose: 10 unit Insulin Human Lispro (Insulin Lispro 100 Unit/Ml) 0 unit SUB-Q ACHS [facility]; Protocol Last Admin: 07/22/22 08:29 Dose: 6 unit Lactulose (Lactulose 20 Gm/30 Ml Oral Liqd) 20 gm PO BID [facility] Last Admin: 07/22/22 09:13 Dose: 20 gm Magnesium Hydroxide (Magnesium Hydroxide (Mom) Oral Liqd Udc) 30 ml PO Q4H PRN PRN Reason: Constipation Methadone HCl (Methadone 5 Mg Tab) 5 mg PO HS [facility] Last Admin: 07/21/22 22:23 Dose: 5 mg Metoclopramide HCl (Metoclopramide 10 Mg Tab) 5 mg PO Q6H PRN PRN Reason: Nausea And Vomiting Morphine Sulfate (Morphine 2 Mg/1 Ml Inj) 2 mg IV Q4H PRN PRN Reason: Pain, Moderate (4-6) Last Admin: 07/22/22 09:14 Dose: 2 mg Ondansetron HCl (Ondansetron 4 Mg/2 Ml Inj) 4 mg IV Q8H PRN PRN Reason: Nausea And Vomiting Pantoprazole Sodium (Pantoprazole 40 Mg Tab) 40 mg PO QDAY PRN PRN Reason: Indigestion Promethazine HCl (Promethazine 25 Mg Rect Supp) 25 mg RI Q6H PRN PRN Reason: Nausea And Vomiting Sodium Chloride (Sodium Chloride 0.9% 10 Ml Flush Syringe) 10 ml IV BID [facility] Last Admin: 07/22/22 09:14 Dose: 10 ml Sodium Chloride (Sodium Chloride 0.9% 10 Ml Flush Syringe) 10 ml IV PRN PRN PRN Reason: LINE FLUSH Exam - Vital Signs Vital signs: Vital Signs Resp Pulse Ox 15 97 07/20/22 17:20 07/20/22 17:20 Results - Lab Results 07/22/22 05:00 07/22/22 05:00 Most recent lab results Calcium 8.7 mg/dL (8.4-10.2) 07/22/22 05:00 Phosphorus 3.30 mg/dL (2.5-4.5) D 07/20/22 19:00 Magnesium 2.20 mg/dL (1.7-2.3) 07/20/22 19:00
[2022-07-22] MEDS ORDERED: SODIUM CHLORIDE 0.9% 100 ML IV PRN (10:30)
[2022-07-22] MEDS: ACETAMINOPHEN 325 MG TAB PO PRN (18:07)
[2022-07-22 19:13] VITALS: BP 167/63
== END 2022-07-22 19:41 | disposition home or self-care (01) | DRG 64 ==
LOC: ED 16:48 → 4A 23:22
PROVIDERS: ADMIT Internal Medicine Geriatric Medicine; ATTEND Student in an Organized Health Care Education/Training Program
PROC: 5A1D70Z Performance of Urinary Filtration, Intermittent, Less than 6 Hours Per Day (ICD-10-PCS; principal; 2022-07-22)
DX: I63.9 Cerebral infarction, unspecified (principal); N18.6 End stage renal disease; F11.20 Opioid dependence, uncomplicated; I13.2 Hypertensive heart and chronic kidney disease with heart failure and with stage 5 chronic kidney disease, or end stage renal disease; I42.8 Other cardiomyopathies; N25.81 Secondary hyperparathyroidism of renal origin; G89.29 Other chronic pain; I50.9 Heart failure, unspecified; Z99.2 Dependence on renal dialysis; Z90.49 Acquired absence of other specified parts of digestive tract; Z96.653 Presence of artificial knee joint, bilateral; E11.22 Type 2 diabetes mellitus with diabetic chronic kidney disease; E11.3293 Type 2 diabetes mellitus with mild nonproliferative diabetic retinopathy without macular edema, bilateral; I48.91 Unspecified atrial fibrillation; E78.5 Hyperlipidemia, unspecified; D63.1 Anemia in chronic kidney disease; D72.819 Decreased white blood cell count, unspecified; Z88.0 Allergy status to penicillin; Z88.8 Allergy status to other drugs, medicaments and biological substances; Z86.16 Personal history of COVID-19
CPT/HCPCS: 36415; 70450; 70496; 70498; 71045; 80048; 80053; 80061; 80074; 80320; 82140; 82550; 82553; 82805; 82962; 83735; 84100; 84439; 84443; 84484; 85025; 85610; 85670; 85730; 93005; 93306; 93880; G0378; Q0177; Q9967; C8929; G0480; J0360; J1170; J1644; J1815; J2270